=== PATIENT | female | born 1955 | race Caucasian/White ===

== ENCOUNTER 2018-07-15 12:08 | Emergency (ER) | payer OTHER, SELFPAY ==
--- NOTE | 2018-07-15 12:40 | EDPHYS ---
Physician Documentation [facility] Name: Clare Lenz Age: 62 yrs Sex: Female : 1955 Arrival Date: 07/15/2018 Time: 12:11 Bed 20 Private MD: Isaac Grier H ED Physician Maninder Gamez HPI: 07/15 12:40 This 62 yrs old Female presents to ER via Ambulatory with complaints of jr8 Cough, Sore Throat, Congestion. 12:40 The patient or guardian reports cough, that is intermittent, described as mild, with jr8 productive sputum, that is yellow. Onset: The symptoms/episode began/occurred gradually, 2 week(s) ago. Severity of symptoms: At their worst the symptoms were mild, in the emergency department the symptoms are unchanged. Modifying factors: The symptoms are alleviated by nothing, the symptoms are aggravated by nothing. Associated signs and symptoms: Pertinent positives: rhinorrhea, sore throat, ear pain. The patient has not experienced similar symptoms in the past. The patient has not recently seen a physician. 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 - Social history:: Smoking status: Patient uses tobacco products, smokes one pack cigarettes per day. - Ebola Screening: : No symptoms or risks identified at this time. ROS: 12:40 Eyes: Negative for injury, pain, redness, and discharge, Neck: Negative for injury, jr8 pain, and swelling, Cardiovascular: Negative for chest pain, palpitations, and edema, Abdomen/GI: Negative for abdominal pain, nausea, vomiting, diarrhea, and constipation, Back: Negative for injury and pain, MS/Extremity: Negative for injury and deformity, Skin: Negative for injury, rash, and discoloration, Neuro: Negative for headache, weakness, numbness, tingling, and seizure. 12:40 ENT: Positive for ear pain, nasal discharge, rhinorrhea, sinus congestion, sinus pain. 12:40 Respiratory: Positive for cough, with yellow sputum, Negative for dyspnea on exertion, shortness of breath, wheezing. Exam: 12:40 Eyes: Pupils equal round and reactive to light, extra-ocular motions intact. Lids and jr8 lashes normal. Conjunctiva and sclera are non-icteric and not injected. Cornea within normal limits. Periorbital areas with no swelling, redness, or edema. ENT: Nares patent. clear rhinorrhea, no septal abnormalities noted. Tympanic membranes are normal and external auditory canals are clear. Oropharynx with no redness, swelling, or masses, exudates, or evidence of obstruction, uvula midline. Postnasal discharge noted. Mucous membranes moist. Neck: Trachea midline, no thyromegaly or masses palpated, and no cervical lymphadenopathy. Supple, full range of motion without nuchal rigidity, or vertebral point tenderness. No Meningismus. Cardiovascular: Regular rate and rhythm with a normal S1 and S2. No gallops, murmurs, or rubs. Normal PMI, no JVD. No pulse deficits. Respiratory: Lungs have equal breath sounds bilaterally, clear to auscultation and percussion. No rales, rhonchi or wheezes noted. No increased work of breathing, no retractions or nasal flaring. Abdomen/GI: Soft, non-tender, with normal bowel sounds. No distension or tympany. No guarding or rebound. No evidence of tenderness throughout. Back: No spinal tenderness. No costovertebral tenderness. Full range of motion. Skin: Warm, dry with normal turgor. Normal color with no rashes, no lesions, and no evidence of cellulitis. MS/ Extremity: Pulses equal, no cyanosis. Neurovascular intact. Full, normal range of motion. Neuro: Awake and alert, GCS 15, oriented to person, place, time, and situation. Cranial nerves II-XII grossly intact. Motor strength 5/5 in all extremities. Sensory grossly intact. Cerebellar exam normal. Normal gait. Vital Signs: 12:32 BP 141 / 82; Pulse 75; Resp 18 S; Temp 98.5(O); Pulse Ox 97% on R/A; Weight 57.15 kg aa5 (R); Height 5 ft. 1 in. (154.94 cm) (R); Pain 0/10; 12:32 Body Mass Index 23.81 (57.15 kg, 154.94 cm) aa5 MDM: 12:31 Patient medically screened. jr8 12:39 Data reviewed: vital signs, nurses notes, and as a result, I will discharge patient. jr8 Data interpreted: Pulse oximetry: on room air is 97 %. Interpretation: normal. Counseling: I had a detailed discussion with the patient and/or guardian regarding: the historical points, exam findings, and any diagnostic results supporting the discharge/admit diagnosis, the need for outpatient follow up, a family practitioner, to return to the emergency department if symptoms worsen or persist or if there are any questions or concerns that arise at home. ED course: Patient has had continuous symptoms for over 2 weeks now with no OTC relief . Administered Medications: No medications were administered Disposition: 15:33 Co-signature as Attending Physician, Maninder Gamez MD. rn Disposition: 07/15/18 12:40 Discharged to Home. Impression: Acute sinusitis. - Condition is Stable. - Discharge Instructions: Sinusitis, Adult. - Prescriptions for Prednisone 20 mg Oral Tablet - take 1 tablet by ORAL route once daily for 5 days; 5 tablet. Zithromax Z- Rigo 250 mg Oral Tablet - take 1 tablet by ORAL route as directed for 5 days Day 1 - take two (2) tablets one time. Day 2, 3, 4 , 5 take one (1) tablet once daily.; 6 tablet. Guaifenesin AC 10- 100 mg/5 mL Oral Liquid - take 10 milliliter by ORAL route every 4 hours As needed; 240 milliliter. - Medication Reconciliation Form, Thank You Letter, Antibiotic Education, Prescription Opioid Use form. - Follow up: Isaac Grier DO; When: 1 week; Reason: Recheck today's complaints, Continuance of care, Re-evaluation by your physician. - Problem is new. - Symptoms have improved. Signatures: Maninder Gamez MD MD rn Calderon, Audri, RN RN aa5 Kyler Garcia PA PA jr8 Corrections: (The following items were deleted from the chart) 12:47 12:40 07/15/2018 12:40 Discharged to Home. Impression: Acute sinusitis. Condition is aa5 Stable. Forms are Medication Reconciliation Form, Thank You Letter, Antibiotic Education, Prescription Opioid Use. Follow up: Isaac Grier; When: 1 week; Reason: Recheck today's complaints, Continuance of care, Re-evaluation by your physician. Problem is new. Symptoms have improved. jr8
--- NOTE | 2018-07-15 12:40 | ER ---
Nurse's Notes [facility] Name: Clare Lenz Age: 62 yrs Sex: Female : 1955 Arrival Date: 07/15/2018 Time: 12:11 Bed 20 Private MD: Isaac Grier H Diagnosis: Acute sinusitis Presentation: 07/15 12:30 Presenting complaint: Patient states: manda ear pain, sore throat, congestion, and aa5 productive cough with greenish sputum x 2 weeks ago. 12:30 Transition of care: patient was not received from another setting of care. Onset of aa5 symptoms was July 2018. Risk Assessment: Do you want to hurt yourself or someone else? Patient reports no desire to harm self or others. Initial Sepsis Screen: Does the patient meet any 2 criteria? No. Patient's initial sepsis screen is negative. Does the patient have a suspected source of infection? No. Patient's initial sepsis screen is negative. Care prior to arrival: None. 12:30 Method Of Arrival: Ambulatory aa5 12:30 Acuity: RAHUL 3 aa5 Triage Assessment: 12:30 General: Appears uncomfortable, Behavior is calm, cooperative. 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 - Social history:: Smoking status: Patient uses tobacco products, smokes one pack cigarettes per day. - Ebola Screening: : No symptoms or risks identified at this time. Screenin:45 Abuse screen: Denies threats or abuse. Nutritional screening: No deficits noted. aa5 Tuberculosis screening: No symptoms or risk factors identified. Fall Risk None identified. Assessment: 12:30 General: Appears uncomfortable, Behavior is calm, cooperative. Pain: Denies pain. aa5 Neuro: Level of Consciousness is awake, alert, obeys commands, Oriented to person, place, time, situation. Cardiovascular: Heart tones S1 S2 present Rhythm is regular. Respiratory: Reports cough that is productive, Airway is patent Respiratory effort is even, unlabored, Respiratory pattern is regular, symmetrical, Breath sounds are clear bilaterally. GI: No signs and/or symptoms were reported involving the gastrointestinal system. : No signs and/or symptoms were reported regarding the genitourinary system. EENT: Throat is clear Reports nasal congestion manda ear pain/pressure. Derm: Skin is pink, warm \T\ dry. Musculoskeletal: Range of motion: intact in all extremities. 12:45 Reassessment: Patient is alert, oriented x 3, equal unlabored respirations, skin aa5 warm/dry/pink. Vital Signs: 12:32 BP 141 / 82; Pulse 75; Resp 18 S; Temp 98.5(O); Pulse Ox 97% on R/A; Weight 57.15 kg aa5 (R); Height 5 ft. 1 in. (154.94 cm) (R); Pain 0/10; 12:32 Body Mass Index 23.81 (57.15 kg, 154.94 cm) aa5 ED Course: 12:11 Patient arrived in ED. rg4 12:11 Isaac Grier DO is Private Physician. rg4 12:30 Arm band placed on Patient placed in an exam room, on a stretcher. aa5 12:30 Patient has correct armband on for positive identification. Bed in low position. Call aa5 light in reach. Side rails up X 1. Adult w/ patient. 12:31 Kyler Garcia PA is PHCP. jr8 12:31 Maninder Gamez MD is Attending Physician. jr8 12:34 Triage completed. aa5 12:40 Isaac Grier DO is Referral Physician. jr8 12:40 Mojgan Easley RN is Primary Nurse. aa5 12:45 No provider procedures requiring assistance completed. Patient did not have IV access aa5 during this emergency room visit. Administered Medications: No medications were administered Outcome: 12:40 Discharge ordered by . jr8 12:45 Discharged to home ambulatory, with family. aa5 12:45 Condition: stable 12:45 Discharge instructions given to patient, Instructed on discharge instructions, follow up and referral plans. medication usage, Demonstrated understanding of instructions, follow-up care, medications, Prescriptions given X 3. 12:47 Patient left the ED. aa5 Signatures: Mojgan Easley RN RN aa5 Kyler Garcia PA PA jr8 Lena May rg4
[2018-07-15 13:14] VITALS: BP 141/82; TEMP 98.5; O2SAT 97
== END 2018-07-15 12:47 | disposition home or self-care (01) ==
LOC: ER 12:08
DX: J01.90 Acute sinusitis, unspecified (principal); F17.210 Nicotine dependence, cigarettes, uncomplicated; Z88.1 Allergy status to other antibiotic agents
CPT/HCPCS: 99282

== ENCOUNTER 2018-09-18 11:41 | Emergency (ER) | payer SELFPAY ==
[2018-09-18] MEDS ORDERED: KETOROLAC 30 MG/ML INJ ONE (12:49)
--- NOTE | 2018-09-18 12:55 | ER ---
Nurse's Notes [facility] Name: Clare Lenz Age: 62 yrs Sex: Female : 1955 Arrival Date: 09/18/2018 Time: 11:43 Bed 10 Private MD: Isaac Grier H Diagnosis: Low back pain Presentation: 09/18 11:51 Presenting complaint: Patient states: left low back pain x 1 day, denies urinary sv symptoms or injury. "Feels like it's going to catch sometimes.". Transition of care: patient was not received from another setting of care. Onset of symptoms was September 17, 2018. Care prior to arrival: None. 11:51 Method Of Arrival: Wheelchair sv 11:51 Acuity: RAHUL 4 sv 12:00 Risk Assessment: Do you want to hurt yourself or someone else? Patient reports no aa5 desire to harm self or others. Initial Sepsis Screen: Does the patient meet any 2 criteria? No. Patient's initial sepsis screen is negative. Does the patient have a suspected source of infection? No. Patient's initial sepsis screen is negative. Triage Assessment: 11:51 General: Appears in no apparent distress. uncomfortable, well developed, Behavior is sv calm, cooperative, appropriate for age. Pain: Complains of pain in low back area. Neuro: Level of Consciousness is awake, alert, obeys commands, Oriented to person, place, time, situation, Moves all extremities. Full function Gait is steady. Respiratory: Respiratory effort is even, unlabored, Respiratory pattern is regular, symmetrical. : Denies burning with urination, urinary frequency, urgency. Musculoskeletal: Range of motion: intact in all extremities. 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 Screenin:00 Abuse screen: Denies threats or abuse. Nutritional screening: No deficits noted. aa5 Tuberculosis screening: No symptoms or risk factors identified. Fall Risk None identified. Assessment: 12:00 General: Appears uncomfortable, Behavior is calm, cooperative. Pain: Complains of pain aa5 in lumbar area, left low back and right low back Pain does not radiate. Pain currently is 10 out of 10 on a pain scale. Quality of pain is described as sharp, Pain began 1 day ago. Is continuous, Aggravated by increased activity, repositioning, Noted to be resistant to movement. Neuro: Level of Consciousness is awake, alert, obeys commands, Oriented to person, place, time, situation. Cardiovascular: No deficits noted. Patient's skin is warm and dry. Respiratory: Airway is patent Respiratory effort is even, unlabored, Respiratory pattern is regular, symmetrical. GI: No signs and/or symptoms were reported involving the gastrointestinal system. : No signs and/or symptoms were reported regarding the genitourinary system. EENT: No signs and/or symptoms were reported regarding the EENT system. Derm: Skin is pink, warm \\T\\ dry. Musculoskeletal: Range of motion: intact in all extremities. 12:54 Reassessment: Patient is alert, oriented x 3, equal unlabored respirations, skin aa5 warm/dry/pink. 12:54 Pain: Pain currently is 10 out of 10 on a pain scale. aa5 13:13 Reassessment: Patient is alert, oriented x 3, equal unlabored respirations, skin aa5 warm/dry/pink. Patient states feeling better. Pain: Pain currently is 8 out of 10 on a pain scale. Vital Signs: 11:53 BP 114 / 67; Pulse 76; Resp 20; Temp 97.1(TE); Pulse Ox 99% on R/A; Weight 56.25 kg; sv Height 5 ft. 1 in. (154.94 cm); Pain 10/10; 11:53 Body Mass Index 23.43 (56.25 kg, 154.94 cm) sv ED Course: 11:43 Patient arrived in ED. mr 11:44 Isaac Grier DO is Private Physician. mr 11:52 Triage completed. sv 11:54 Arm band placed on Patient placed in waiting room, Patient notified of wait time. sv 11:55 Bean Santana PA is PHCP. cp 11:55 Bean Marcelino MD is Attending Physician. cp 12:00 Patient has correct armband on for positive identification. Bed in low position. Call aa5 light in reach. Side rails up X 1. 12:03 Mojgan Easley, LEIF is Primary Nurse. aa5 12:54 Isaac Grier DO is Referral Physician. cp 13:15 No provider procedures requiring assistance completed. Patient did not have IV access aa5 during this emergency room visit. Administered Medications: 12:54 Drug: TORadol 60 mg Route: IM; Site: left gluteus; aa5 13:15 Follow up: Response: No adverse reaction aa5 Outcome: 12:55 Discharge ordered by MD. cp 13:13 Discharged to home ambulatory, with friend. aa5 13:13 Condition: improved 13:13 Discharge instructions given to patient, Instructed on discharge instructions, follow up and referral plans. medication usage, Demonstrated understanding of instructions, follow-up care, medications, Prescriptions given X 3. 13:15 Patient left the ED. aa5 Signatures: Carla Ferguson RN RN Alisia Palacio Audri RN RN aa5 Bean Santana PA PA cp Corrections: (The following items were deleted from the chart) 11:54 11:53 Pulse 76bpm; Resp 20bpm; Pulse Ox 99%; Temp 97.1F; 56.25 kg; Height 5 ft. 1 in.; sv BMI: 23.4; Pain 10/10; sv
--- NOTE | 2018-09-18 12:55 | EDPHYS ---
Physician Documentation [facility] Name: Clare Lenz Age: 62 yrs Sex: Female : 1955 Arrival Date: 09/18/2018 Time: 11:43 Bed 10 Private MD: Isaac Grier H ED Physician Bean Marcelino HPI: 09/18 12:25 This 62 yrs old Female presents to ER via Wheelchair with complaints of Back cp Pain. 12:25 The patient presents with pain that is acute, with no known mechanism of injury. The cp symptoms are located in the low back. 09/19 05:35 Onset: The symptoms/episode began/occurred 2 day(s) ago. The pain does not radiate. cp Associated signs and symptoms: Pertinent negatives: abdominal pain, chest pain, constipation, fever, incontinence, weakness. 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 ROS: 12:33 Constitutional: Negative for body aches, chills, fever, poor PO intake. cp 12:33 Eyes: Negative for injury, pain, redness, and discharge. cp Exam: 12:40 Constitutional: The patient appears in no acute distress, alert, awake, cp non-diaphoretic, non-toxic, well developed, well nourished, uncomfortable. 12:40 Head/Face: Normocephalic, atraumatic. cp 12:40 Eyes: Periorbital structures: appear normal, Conjunctiva: normal, no exudate, no injection, Sclera: no appreciated abnormality, Lids and lashes: appear normal, bilaterally. 12:40 ENT: External ear(s): are unremarkable, Nose: is normal, Mouth: Lips: moist, Oral mucosa: pink and intact, moist, Posterior pharynx: Airway: no evidence of obstruction, patent. 12:40 Neck: ROM/movement: is normal, is supple, without pain, no meningismus, no nuchal rigidity. 12:40 Chest/axilla: Inspection: normal, Palpation: is normal, no crepitus, no tenderness. 12:40 Cardiovascular: Rate: normal, Rhythm: regular, Edema: is not appreciated, JVD: is not appreciated. 12:40 Respiratory: the patient does not display signs of respiratory distress, Respirations: normal, no use of accessory muscles, no retractions, no splinting, no tachypnea, Breath sounds: are clear throughout, no decreased breath sounds. 12:40 Abdomen/GI: Inspection: abdomen appears normal, Bowel sounds: active, all quadrants. 12:40 Back: pain, that is moderate, of the low back area, ROM is painful, with all movement. 12:40 Skin: cellulitis, is not appreciated, no rash present. 12:40 Neuro: Orientation: to person, place \T\ time. Mentation: is normal, Cerebellar function: is grossly normal, Motor: moves all fours, strength is normal, Sensation: no obvious gross deficits. Vital Signs: 11:53 BP 114 / 67; Pulse 76; Resp 20; Temp 97.1(TE); Pulse Ox 99% on R/A; Weight 56.25 kg; sv Height 5 ft. 1 in. (154.94 cm); Pain 10/10; 11:53 Body Mass Index 23.43 (56.25 kg, 154.94 cm) sv MDM: 11:55 Patient medically screened. cp 12:20 Differential diagnosis: chronic back pain, Metastatic Disease ruptured disc, cp Ureterolithiasis vertebral fracture. 12:55 Data reviewed: vital signs, nurses notes, lab test result(s), radiologic studies. cp 09/18 12:59 Order name: Urine Dipstick--Ancillary (enter results) eb 09/18 12:21 Order name: Urine Dipstick-Ancillary (obtain specimen); Complete Time: 12:54 cp Administered Medications: 12:54 Drug: TORadol 60 mg Route: IM; Site: left gluteus; aa5 13:15 Follow up: Response: No adverse reaction aa5 Disposition: 09/18/18 12:55 Discharged to Home. Impression: Low back pain. - Condition is Stable. - Discharge Instructions: Back Pain, Adult, Back Exercises, [id number], Heat Therapy. - Prescriptions for Cyclobenzaprine 10 mg Oral Tablet - take 1 tablet by ORAL route every 8 hours As needed no driving while taking medication; 20 tablet. Tramadol 50 mg Oral Tablet - take 1 tablet by ORAL route every 8 hours as needed. no driving while taking medication; 15 tablet. Medrol (Rigo) 4 mg Oral Tablets, Dose Pack - take 1 tablet by ORAL route as directed - follow package instructions; 1 packet. - Medication Reconciliation Form, Thank You Letter, Antibiotic Education, Prescription Opioid Use form. - Follow up: Lilliam GrierMayiDO Lazaro; When: 2 - 3 days; Reason: Recheck today's complaints. - Problem is new. - Symptoms have improved. Addendum: 09/21/2018 07:08 Co-signature as Attending Physician, Bean Marcelino MD I agree with the assessment and c minaya plan of care. Signatures: Dispatcher [employer] Carla Rodriguez RN RN Bean Lezama MD MD cha Calderon, Audri RN RN aa5 Bean Santana PA PA cp Corrections: (The following items were deleted from the chart) 09/18 13:15 12:55 09/18/2018 12:55 Discharged to Home. Impression: Low back pain. Condition is aa5 Stable. Forms are Medication Reconciliation Form, Thank You Letter, Antibiotic Education, Prescription Opioid Use. Follow up: Isaac Grier; When: 2 - 3 days; Reason: Recheck today's complaints. Problem is new. Symptoms have improved. cp
[2018-09-18 13:20] VITALS: BP 114/67; TEMP 97.1; O2SAT 99
[2018-09-18 13:31] LABS: Urine Blood TRACE (NEG); Urine Glucose NEGATIVE (NEG); Urine Protein NEGATIVE (NEG)
== END 2018-09-18 13:15 | disposition home or self-care (01) ==
LOC: ER 11:41
DX: M54.5 Low back pain (principal); Z88.1 Allergy status to other antibiotic agents
CPT/HCPCS: 81003; 96372; 99283

== ENCOUNTER 2021-12-18 11:42 | Emergency (ER) | payer OTHER ==
--- OUTSIDE RECORDS SUMMARY | 2021-12-18 11:45 | XMS REPORT | Continuity of Care Document ---
:1955 Author Organization [facility] t Address [address] [place] [address] [address] [place] [address] Care Team Providers Name Role Phone MURILLO, MANUEL Attending Clinician Unavailable Nakul Attending Clinician Unavailable NIKOLAI GALVIN Attending Clinician Unavailable RAGHU BLANCAS Attending Clinician Unavailable ANGELIA_Yelitza_Maira Attending Clinician Unavailable Elle_Jose M Attending Clinician Unavailable Nakul Admitting Clinician Unavailable NIKOLAI GALVIN Admitting Clinician Unavailable ANGELIA_Yelitza_Maira Admitting Clinician Unavailable Elle_Jose M Admitting Clinician Unavailable Payers Payer Name Policy Type Policy Number Effective Date Expiration Date S micaela [facility] [employer] [id number] 2021 00:00:00 [facility] - MEDICARE [id number] COMPLETE (MEDICARE REPLACEMENT HMO) Problems This patient has no known problems. Allergies, Adverse Reactions, Alerts This patient has no known allergies or adverse reactions. Medications This patient has no known medications. Procedures This patient has no known procedures. Encounters Start End Encounter Admission Attending Care Care Encounter Source Date/Time Date/Time Type Type Clinicians Facility Department ID 2021-12-14 Outpatient [facility] [id number] [place] 10:10:[address] [id number] 2021-12-15 2021-12-15 Outpatient AUGUST_Andres AOSM AOSM [id number] Elli 01:26:00 01:26:00 Allison [id number] [facility] 2021-11-28 2021-11-30 Inpatient KAMAR, SW [facility] [id number] [facility] 19:46:00 14:00:00 HELGA 2021-11-28 2021-11-28 Emergency E MAGALIS, BL [facility]BL [id number] [facility]BL 13:05:00 19:00:00 MENDY 2021-11-28 2021-11-28 Outpatient GC_TNC_Cher PRIV PRIV [id number] [facility] 05:59:00 05:59:00 ches_I [id number] Medica l 2019-10-04 2019-10-04 Outpatient Raju_P [facility] [id number] [place] 03:06:00 03:06:00 [id number] [facility] Results This patient has no known results.
--- NOTE | 2021-12-18 12:36 | EDPHYS ---
Physician Documentation [facility] Name: Clare Lenz Age: 66 yrs Sex: Female : 1955 Arrival Date: 12/18/2021 Time: 12:06 Bed 19 Private MD: ED Physician Maninder Gamez HPI: 12/18 12:30 This 66 yrs old Female presents to ER via Ambulatory with complaints of Rash, Itching. cp 12:30 The patient's rash thought to be caused by medication. The rash is located on the right cp arm, left arm, right leg and left leg. The rash can be described as urticarial. 12:32 Onset: The symptoms/episode began/occurred 5 day(s) ago. Associated signs and symptoms: cp Pertinent positives: burning sensation, itching, Pertinent negatives: difficulty breathing, fever, swelling of lips, swelling of throat, swelling of tongue, wheezing. 12:32 Started new medications: Atorvastatin and Clopidogrel on 11-30-2021. cp Historical: - Allergies: 12:26 Cipro; ap3 - PMHx: 12:26 Herniated disc; TIA; ap3 - Immunization history:: Client reports having NOT received the Covid vaccine. - Social history:: Smoking status: Patient reports the use of cigarette tobacco products, smokes one-half pack cigarettes per day. ROS: 12:33 Constitutional: Negative for body aches, chills, fever, poor PO intake. cp 12:33 Eyes: Negative for injury, pain, redness, and discharge. cp 12:33 ENT: Negative for drainage from ear(s), ear pain, sore throat, difficulty swallowing, difficulty handling secretions. 12:33 Cardiovascular: Negative for chest pain, edema, palpitations. 12:33 Respiratory: Negative for cough, shortness of breath, wheezing. 12:33 Abdomen/GI: Negative for abdominal pain, nausea, vomiting, and diarrhea. 12:33 Skin: Positive for abrasion(s), rash, pruritus . 12:33 Neuro: Negative for altered mental status. 12:33 All other systems are negative. Exam: 12:35 Constitutional: The patient appears in no acute distress, alert, awake, non-toxic, well cp developed, well nourished. 12:35 Head/Face: Normocephalic, atraumatic. cp 12:35 Chest/axilla: Inspection: normal. 12:35 Cardiovascular: Rate: normal, Rhythm: regular. 12:35 Respiratory: the patient does not display signs of respiratory distress, Respirations: normal, no use of accessory muscles, no retractions, labored breathing, is not present, Breath sounds: are clear throughout, no decreased breath sounds, no stridor, no wheezing. 12:35 Abdomen/GI: Exam negative for discomfort, distension, guarding, Inspection: abdomen appears normal. 12:35 Skin: rash can be described as urticarial, on the right arm and left arm. 12:35 Neuro: Orientation: to person, place \T\ time. Mentation: is normal. Vital Signs: 12:24 BP 137 / 98; Pulse 80; Temp 98.0; Pulse Ox 98% ; Weight 56.7 kg; Height 5 ft. 1 in. ap3 (154.94 cm); 12:24 Body Mass Index 23.62 (56.70 kg, 154.94 cm) ap3 MDM: 12:36 Patient medically screened. cp 12:36 Differential diagnosis: allergic reaction, medication reaction, scabies. cp 12:36 Data reviewed: vital signs, nurses notes, and as a result, I will discharge patient. cp Counseling: I had a detailed discussion with the patient and/or guardian regarding: the historical points, exam findings, and any diagnostic results supporting the discharge/admit diagnosis, the need for outpatient follow up, a family practitioner, to return to the emergency department if symptoms worsen or persist or if there are any questions or concerns that arise at home. Response to treatment: the patient's symptoms have mildly improved after treatment. Administered Medications: 13:15 Drug: SOLU-Medrol (methylPREDNISolone sodium succinate) 80 mg {Note: 40 mg in left vg1 deltoid and 40 mg in right deltoid.} Route: IM; Site: right gluteus; 13:27 Follow up: Response: Medication administered at discharge. vg1 Disposition Summary: 12/18/21 12:36 Discharge Ordered Location: Home cp Problem: an ongoing problem cp Symptoms: are unchanged cp Condition: Stable cp Diagnosis - Urticaria, unspecified cp Followup: cp - With: Private Physician - When: 2 - 3 days - Reason: Recheck today's complaints Discharge Instructions: - Discharge Summary Sheet cp - Drug Allergy cp Forms: - Medication Reconciliation Form cp - Thank You Letter cp - Antibiotic Education cp - Prescription Opioid Use cp Prescriptions: - Vistaril 25 mg Oral capsule - take 2 capsule by ORAL route 4 times per day may take 1-2 capsules every 6 cp hours as needed for itching; 30 capsule; Refills: 0, Product Selection Permitted - Pepcid 20 mg Oral Tablet - take 1 tablet by ORAL route every 12 hours for 10 days; 20 tablet; Refills: 0, cp Product Selection Permitted Signatures: Bean Santana PA PA cp Prokisch, Amanda RN RN ap3 Darya May RN RN vg1
--- NOTE | 2021-12-18 12:36 | ER ---
Nurse's Notes [facility] Name: Clare Lenz Age: 66 yrs Sex: Female : 1955 Arrival Date: 12/18/2021 Time: 12:06 Bed 19 Private MD: Diagnosis: Urticaria, unspecified Presentation: 12/18 12:24 Chief complaint: Patient states: she has been having a burning and tingling feeling in ap3 her arms and legs. Patient reports this started a few days ago and was evaluated at [facility] for the same symptoms. Patient states her symptoms have not improved. Coronavirus screen: At this time, the client does not indicate any symptoms associated with coronavirus-19. Ebola Screen: No symptoms or risks identified at this time. Onset: The symptoms/episode began/occurred gradually, 5 day(s) ago. Anaphylaxis evaluation, no signs or symptoms of anaphylaxis were noted. Initial Sepsis Screen: Does the patient meet any 2 criteria? No. Patient's initial sepsis screen is negative. Does the patient have a suspected source of infection? No. Patient's initial sepsis screen is negative. Risk Assessment: Do you want to hurt yourself or someone else? Patient reports no desire to harm self or others. Onset of symptoms was December 13, 2021. 12:24 Method Of Arrival: Ambulatory ap3 12:24 Acuity: RAHUL 4 ap3 Triage Assessment: 12:30 General: Appears in no apparent distress. Behavior is calm, cooperative, appropriate ap3 for age. Pain: Denies pain. Neuro: Level of Consciousness is awake, alert, obeys commands, Oriented to person, place, time, situation, Appropriate for age Gait is steady. Cardiovascular: Patient's skin is warm and dry. Respiratory: Airway is patent Respiratory effort is even, unlabored, Respiratory pattern is regular, symmetrical. Derm: Reports itching, tingling. Historical: - Allergies: 12:26 Cipro; ap3 - PMHx: 12:26 Herniated disc; TIA; ap3 - Immunization history:: Client reports having NOT received the Covid vaccine. - Social history:: Smoking status: Patient reports the use of cigarette tobacco products, smokes one-half pack cigarettes per day. Screenin:30 Abuse screen: Denies threats or abuse. Nutritional screening: No deficits noted. ap3 Tuberculosis screening: No symptoms or risk factors identified. Fall Risk None identified. Assessment: 13:10 General: Appears comfortable, Behavior is calm, cooperative. Pain: Denies pain. Neuro: vg1 Sommers Agitation-Sedation Scale (RASS): 0 - Alert and Calm Level of Consciousness is awake, alert, obeys commands, Oriented to person, place, time, situation. Cardiovascular: Patient's skin is warm and dry. Respiratory: Airway is patent Respiratory effort is even, unlabored, Breath sounds are clear Denies shortness of breath. GI: No signs and/or symptoms were reported involving the gastrointestinal system. : No signs and/or symptoms were reported regarding the genitourinary system. EENT: No signs and/or symptoms were reported regarding the EENT system. Derm: Skin is intact, is healthy with good turgor, Rash noted that is itchy. Musculoskeletal: Circulation, motion, and sensation intact. Vital Signs: 12:24 BP 137 / 98; Pulse 80; Temp 98.0; Pulse Ox 98% ; Weight 56.7 kg; Height 5 ft. 1 in. ap3 (154.94 cm); 12:24 Body Mass Index 23.62 (56.70 kg, 154.94 cm) ap3 ED Course: 12:06 Patient arrived in ED. rg4 12:09 Bean Santana PA is PHCP. cp 12:09 Maninder Gamez MD is Attending Physician. cp 12:26 Triage completed. ap3 12:31 Arm band placed on right wrist. ap3 12:31 Patient has correct armband on for positive identification. Pulse ox on. NIBP on. ap3 13:09 Darya May, RN is Primary Nurse. vg1 13:30 No provider procedures requiring assistance completed. Patient did not have IV access vg1 during this emergency room visit. Administered Medications: 13:15 Drug: SOLU-Medrol (methylPREDNISolone sodium succinate) 80 mg {Note: 40 mg in left vg1 deltoid and 40 mg in right deltoid.} Route: IM; Site: right gluteus; 13:27 Follow up: Response: Medication administered at discharge. vg1 Medication: 13:10 VIS not applicable for this client. vg1 Outcome: 12:36 Discharge ordered by . cp 13:30 Discharged to home ambulatory. vg1 13:30 Condition: good 13:30 Discharge instructions given to patient, Instructed on discharge instructions, follow up and referral plans. medication usage, Demonstrated understanding of instructions, follow-up care, medications, Prescriptions given X 2. 13:30 Patient left the ED. vg1 Signatures: Bean Santana PA PA cp Garcia, Rubi rg4 Kamala Vu, RN RN ap3 Darya May RN RN vg1 Corrections: (The following items were deleted from the chart) 13 13:10 No provider procedures requiring assistance completed. vg1 vg1 13 13:10 Patient did not have IV access during this emergency room visit. vg1 vg1
[2021-12-18] MEDS ORDERED: METHYLPREDNISOLONE 40 MG INJ ONE (13:23)
[2021-12-18 13:46] VITALS: BP 137/98; TEMP 98; O2SAT 98
== END 2021-12-18 13:30 | disposition home or self-care (01) ==
LOC: ER 11:42
DX: L50.9 Urticaria, unspecified (principal); F17.210 Nicotine dependence, cigarettes, uncomplicated; Z88.1 Allergy status to other antibiotic agents
CPT/HCPCS: 96372; 99283; J2920

== ENCOUNTER → 2021-12-24 | Day surgery (SDC) | payer OTHER ==
--- NOTE | 2021-12-24 11:58 | RAD REPORT ---
EXAM DESCRIPTION: US - Guided FNA Non Breast - 12/24/2021 11:32 am CLINICAL HISTORY: E04.1 COMPARISON: Thyroid Para Parotid Gland dated 11/15/2021 TECHNIQUE: Patient presents for ultrasound-guided fine-needle aspiration of previously detailed 3.5 cm heterogeneous solid nodule in the right lobe of the thyroid gland. The procedure, risks and alternatives were discussed with the patient in detail. After answering all questions both oral and written consent were obtained. Patient had no contraindicated allergy and was lost anticoagulation medication for 7 days. Preliminary imaging again identified a large solid nodule. Anterior right neck was prepped and draped in the usual sterile fashion. Under sonographic guidance, skin and deeper tissues were anesthetized with 1% lidocaine. Under sonographic visualization a 25 gauge needle was advanced into the nodule. Multiple to and fro e xcursions of the needle tip performed. FNA procedure was repeated with 3 additional 25 gauge needles. All obtained material was given to pathology for cytology/ histology assessment. At the conclusion of the procedure there was no evidence for hematoma within or adjacent to the nodul e. No procedure related complications noted. Postprocedure care and precaution instructions were give n to the patient. FINDINGS: Ultrasound-guided FNA was performed of the large solid nodule right lobe. Patient tolerated procedure well without complications.
== END ==
LOC: FNA 10:06
PROVIDERS: ATTEND Family Medicine
PROC: 0GJK3ZZ Inspection of Thyroid Gland, Percutaneous Approach (ICD-10-PCS; principal; 2021-12-24)
DX: E04.1 Nontoxic single thyroid nodule (principal)
CPT/HCPCS: 88162

== ENCOUNTER 2022-02-09 17:35 | Emergency (ER) | payer OTHER ==
--- OUTSIDE RECORDS SUMMARY | 2022-02-09 17:38 | XMS REPORT | Continuity of Care Document ---
:1955 Author Organization [facility] t Address [address] [place] [address] [address]. [address] [place] [address] Care Team Providers Name Role Phone Lilliam Grier Primary Care Physician MATTHEW MURILLO Attending Clinician Unavailable RESHMA SINGLETON Attending Clinician Unavailable Stoney Johnson Attending Clinician Unavailable Nakul Attending Clinician Unavailable HELGA GALVIN Attending Clinician Unavailable MENDY BLANCAS Attending Clinician Unavailable [email or web address] Attending Clinician Unavailable Raju_P Attending Clinician Unavailable Nakul Admitting Clinician Unavailable HELGA GALVIN Admitting Clinician Unavailable [email or web address] Admitting Clinician Unavailable Robbinu_P Admitting Clinician Unavailable Payers Payer Name Policy Type Policy Number Effective Date Expiration Date Naveed hinojosa [facility] [employer] [id number] 2021 00:00:[address] [facility] - MEDICARE [id number] COMPLETE (MEDICARE REPLACEMENT HMO) Problems This patient has no known problems. Allergies, Adverse Reactions, Alerts Allergy Allergy Status Severity Reaction(s) Onset Inactive Treating Comm ents Source Name Type Date Date Clinician sabine DA Active U Rash [facility] benson 12-27 00:00: 00 Social History Social Habit Start Date Stop Date Quantity Comments Source Sex Assigned At [birth year] [facility] 00:00:00 00:00:00 Smoking Status Start Date Stop Date Source Tobacco smoking consumption unknown [facility] Medications This patient has no known medications. Procedures This patient has no known procedures. Encounters Start End Encounter Admission Attending Care Care Encounter Source Date/Time Date/Time Type Type Clinicians Facility Department ID 2022-01-23 Outpatient MURILLO, [facility] [id number] [place] 12:31:25 GENE-ELKIN [id number] [facility] 2021-12-14 Outpatient MURILLO, [facility] [id number] [place] 10:10:38 GENE-ELKIN [id number] [facility] 2022-02-07 2022-02-07 Telephone Divya [facility] [id number] [place] 00:00:00 [id number] [id number] Medical [id number] [place] 1 2 2022-01-31 2022-02-01 Outpatient ARELI [facility] MED [id number] [facility] 16:49:00 11:39:00 RESHMA 2021-12-28 2021-12-28 Outpatient Elective Elizabeth, [facility] [id number] [facility] 05:42:00 12:30:00 Stoney 45 2021-12-28 2021-12-[address] [facility] [id number] [facility] 05:42:00 05:42:00 45 2021-12-15 2021-12-15 Outpatient FOG_Taba_Ho AOSM AOSM [id number] Elli 01:26:00 01:26:00 Allison [id number] [facility] 2021-12-14 2021-12-14 Telephone Divay [facility] [id number] [place] 00:00:00 00:00:00 [facility] [id number] [facility] [id number] Medical [id number] [place] 1 2 2021-11-28 2021-11-30 Inpatient KAMAR, SW [facility] [id number] MHSW 19:46:00 14:00:00 HELGA 2021-11-28 2021-11-28 Emergency E MAGALIS, MHBL MHBL [id number] MHBL 13:05:00 19:00:00 MENDY 2021-11-28 2021-11-28 Outpatient GC_TNC_Cher PRIV PRIV [id number] [facility] 05:59:00 05:59:00 ches_I [id number] Medica l 2019-10-04 2019-10-04 Outpatient Raju_P MMG [facility] [id number] [place] 03:06:00 03:06:00 0330 [facility] Results This patient has no known results.
--- NOTE | 2022-02-09 18:43 | EDPHYS ---
Physician Documentation [facility] Name: Clare Lenz Age: 66 yrs Sex: Female : 1955 Arrival Date: 02/09/2022 Time: 17:37 Bed 11 Private MD: Isaac Grier H ED Physician Jomar Ramsey HPI: 02/09 18:26 This 66 yrs old Female presents to ER via Ambulatory with complaints of arm/leg mh7 tremors, Blurred Vision, Headache. 18:26 The patient complains of pain to the forehead. mh7 18:26 The patient describes the headache as intermittent, throbbing, waxing and waning. mh7 Onset: The symptoms/episode began/occurred 3 month(s) ago. Associated signs and symptoms: Pertinent negatives: Photophobia blurred vision, tremors of left arm/leg. Severity of symptoms: At its worst the pain was moderate, 14 day(s) ago, in the emergency department the pain has resolved, 4 day(s) prior to arrival. Headache History: The patient has had previous headaches and this one is similar to previous episodes. The symptoms are alleviated by quiet, remaining still, the symptoms are aggravated by movement, activity. The patient has experienced similar episodes in the past, chronically. Patient states that she has had daily episodes of headache, blurred vision, left arm/leg tremors since she had a stroke 3 months ago. She states that symptoms seem to occur when she is doing activities and go away when she sits and rests. Denies any fever, chest pain, neck pain, abdominal pain, SOB, dizziness, numbness/tingling, or weakness. . Historical: - Allergies: 17:49 Cipro; ap3 - PMHx: 17:49 Herniated disc; TIA; ap3 - PSHx: 17:49 stent placed in right leg; ap3 - Immunization history:: Client reports having NOT received the Covid vaccine. - Social history:: Smoking status: Patient reports the use of cigarette tobacco products, smokes one-half pack cigarettes per day. ROS: 18:26 Constitutional: Negative for fever, chills, and weight loss, ENT: Negative for injury, mh7 pain, and discharge, Neck: Negative for injury, pain, and swelling, Cardiovascular: Negative for chest pain, palpitations, and edema, Respiratory: Negative for shortness of breath, cough, wheezing, and pleuritic chest pain, Abdomen/GI: Negative for abdominal pain, nausea, vomiting, diarrhea, and constipation, Back: Negative for injury and pain, : Negative for injury, bleeding, discharge, and swelling, MS/Extremity: Negative for injury and deformity, Skin: Negative for injury, rash, and discoloration, Psych: Negative for depression, anxiety, suicide ideation, homicidal ideation, and hallucinations, Allergy/Immunology: Negative for hives, rash, and allergies, Endocrine: Negative for neck swelling, polydipsia, polyuria, polyphagia, and marked weight changes, Hematologic/Lymphatic: Negative for swollen nodes, abnormal bleeding, and unusual bruising. Exam: 18:26 Constitutional: This is a well developed, well nourished patient who is awake, alert, mh7 and in no acute distress. Head/Face: Normocephalic, atraumatic. Eyes: Pupils equal round and reactive to light, extra-ocular motions intact. Lids and lashes normal. Conjunctiva and sclera are non-icteric and not injected. Cornea within normal limits. Periorbital areas with no swelling, redness, or edema. ENT: Nares patent. No nasal discharge, no septal abnormalities noted. Tympanic membranes are normal and external auditory canals are clear. Oropharynx with no redness, swelling, or masses, exudates, or evidence of obstruction, uvula midline. Mucous membranes moist. Neck: Trachea midline, no thyromegaly or masses palpated, and no cervical lymphadenopathy. Supple, full range of motion without nuchal rigidity, or vertebral point tenderness. No Meningismus. Chest/axilla: Normal chest wall appearance and motion. Nontender with no deformity. No lesions are appreciated. Cardiovascular: Regular rate and rhythm with a normal S1 and S2. No gallops, murmurs, or rubs. Normal PMI, no JVD. No pulse deficits. Respiratory: Lungs have equal breath sounds bilaterally, clear to auscultation and percussion. No rales, rhonchi or wheezes noted. No increased work of breathing, no retractions or nasal flaring. Abdomen/GI: Soft, non-tender, with normal bowel sounds. No distension or tympany. No guarding or rebound. No evidence of tenderness throughout. Back: No spinal tenderness. No costovertebral tenderness. Full range of motion. Skin: Warm, dry with normal turgor. Normal color with no rashes, no lesions, and no evidence of cellulitis. MS/ Extremity: Pulses equal, no cyanosis. Neurovascular intact. Full, normal range of motion. Neuro: Awake and alert, GCS 15, oriented to person, place, time, and situation. Cranial nerves II-XII grossly intact. Motor strength 5/5 in all extremities. Sensory grossly intact. Cerebellar exam normal. Normal gait. Psych: Awake, alert, with orientation to person, place and time. Behavior, mood, and affect are within normal limits. 18:35 Eyes: Patient declined fluorescein and tonometry exam. [facility] Vital Signs: 17:46 BP 154 / 58; Pulse 86; Resp 18; Temp 98.7; Pulse Ox 99% ; Weight 54.88 kg; Height 5 ft. ap3 2 in. (157.48 cm); 17:46 Body Mass Index 22.13 (54.88 kg, 157.48 cm) ap3 [place] Coma Score: 18:26 Eye Response: spontaneous(4). Verbal Response: oriented(5). Motor Response: obeys 7 commands(6). Total: 15. MDM: 18:26 Differential diagnosis: cluster headache, hypoglycemia, hyponatremia, migraine, tension mh7 headache, seizures, post CVA sequela. Data reviewed: vital signs, nurses notes, old medical records. Data interpreted: Pulse oximetry: on room air is 99 %. Interpretation: normal. Counseling: I had a detailed discussion with the patient and/or guardian regarding: the historical points, exam findings, and any diagnostic results supporting the discharge/admit diagnosis. Response to treatment: the patient's symptoms have resolved after treatment, the patient's blood pressure is in an acceptable range, mental status has returned to baseline, the patient no longer shows bradycardia, the patient is not short of breath, the patient is not tachycardic, the patient's pain is gone, the patient's temperature has normalized. Refusal of service: The patient/guardian displays adequate decision making capability and despite a detailed discussion of alternatives, benefits, risks, and consequences refuses: CT Scan, all lab tests, all X-rays. ED course: Patient states that she feels fine and declined any testing or evaluation. She will follow up with her PCP and has an appointment to see her neurologist. Advised patient to return to ER if worsening of symptoms or any other concerns.. 18:43 Patient medically screened. [facility] 02/09 18:26 Order name: EKG; Complete Time: 18:27 [facility] 02/09 18:26 Order name: Cardiac monitoring; Complete Time: 18:26 [facility] 02/09 18:26 Order name: EKG - Nurse/Tech; Complete Time: 18:26 [facility] 02/09 18:26 Order name: Labs collected and sent; Complete Time: 18:26 [facility] 02/09 18:26 Order name: O2 Per Protocol; Complete Time: 18:26 [facility] 02/09 18:26 Order name: O2 Sat Monitoring; Complete Time: 18: [facility] Administered Medications: No medications were administered Disposition Summary: 02/09/22 18:43 Discharge Ordered Location: Home [facility] Problem: chronic [facility] Symptoms: have improved [facility] Condition: Stable [facility] Diagnosis - Tremor, unspecified - chronic 7 - Headache - chronic 7 - Other visual disturbances - chronic [facility] Followup: [facility] - With: Isaac Grier DO - When: 1 - 2 days - Reason: Worsening of condition, Recheck today's complaints, Continuance of care, Re-evaluation by your physician Followup: [facility] - With: Jozef Mcdaniels MD - When: 1 - 2 days - Reason: Worsening of condition, Recheck today's complaints Discharge Instructions: - Discharge Summary Sheet 7 - Blurred Vision, Adult 7 - General Headache Without Cause 7 - Tremor [facility] Forms: - Medication Reconciliation Form [facility] - Thank You Letter [facility] - Antibiotic Education 7 - Prescription Opioid Use [facility] Signatures: Dispatcher [employer] Kamala Wiley RN RN ap3 Jomar Ramsey MD MD 7 Corrections: (The following items were deleted from the chart) 18:33 18:26 IV Saline Lock ordered. [facility]
--- NOTE | 2022-02-09 18:43 | ER ---
Nurse's Notes [facility] Name: Clare Lenz Age: 66 yrs Sex: Female : 1955 Arrival Date: 02/09/2022 Time: 17:37 Bed 11 Private MD: Isaac Grier H Diagnosis: Tremor, unspecified-chronic;Headache-chronic;Other visual disturbances-chronic Presentation: 02/09 17:46 Chief complaint: Patient states: she had a stroke in November of this year, and ever since ap3 the stroke she reports tremors in her left arm and left leg. patient states that over the last couple of months those tremors have gotten worse. Patient states that she has been evaluated by her PCP for these symptoms, but hasn't been able to get in to see her neurologist as of yet. Coronavirus screen: At this time, the client does not indicate any symptoms associated with coronavirus-19. Ebola Screen: No symptoms or risks identified at this time. Initial Sepsis Screen: Does the patient meet any 2 criteria? No. Patient's initial sepsis screen is negative. Does the patient have a suspected source of infection? No. Patient's initial sepsis screen is negative. Risk Assessment: Do you want to hurt yourself or someone else? Patient reports no desire to harm self or others. Onset of symptoms was November 2021. 17:46 Method Of Arrival: Ambulatory ap3 17:46 Acuity: RAHUL 3 ap3 Triage Assessment: 17:50 General: Appears in no apparent distress. Behavior is calm, cooperative, appropriate ap3 for age. Pain: Denies pain. EENT: Neuro: Level of Consciousness is awake, alert, obeys commands, Oriented to person, place, time, situation, Moves all extremities. Gait is steady, Speech is normal, Facial symmetry appears normal. Cardiovascular: Patient's skin is warm and dry. Respiratory: Airway is patent Respiratory effort is even, unlabored, Respiratory pattern is regular, symmetrical. Musculoskeletal: Reports intermittent tremors in left arm and leg. Historical: - Allergies: 17:49 Cipro; ap3 - PMHx: 17:49 Herniated disc; TIA; ap3 - PSHx: 17:49 stent placed in right leg; ap3 - Immunization history:: Client reports having NOT received the Covid vaccine. - Social history:: Smoking status: Patient reports the use of cigarette tobacco products, smokes one-half pack cigarettes per day. Screenin:51 Abuse screen: Denies threats or abuse. Nutritional screening: No deficits noted. ap3 Tuberculosis screening: No symptoms or risk factors identified. 17:59 Fall Risk None identified. bm7 Assessment: 17:59 Reassessment: Patient and/or family updated on plan of care and expected duration. Pain bm7 level reassessed. Patient is alert, oriented x 3, equal unlabored respirations, skin warm/dry/pink. General: Appears in no apparent distress. comfortable, well groomed, well developed, Behavior is calm, cooperative, appropriate for age. Pain: Denies pain. Neuro: Level of Consciousness is awake, alert, obeys commands, Oriented to person, place, time, situation, Information Assurance are equal bilaterally Moves all extremities. Gait is steady, Speech is normal, Facial symmetry appears normal, Pupils are PERRLA. Cardiovascular: No deficits noted. Denies chest pain, shortness of breath. Respiratory: No deficits noted. GI: No deficits noted. No signs and/or symptoms were reported involving the gastrointestinal system. : No deficits noted. No signs and/or symptoms were reported regarding the genitourinary system. EENT: No deficits noted. No signs and/or symptoms were reported regarding the EENT system. Derm: No deficits noted. No signs and/or symptoms reported regarding the dermatologic system. Musculoskeletal: No deficits noted. No signs and/or symptoms reported regarding the musculoskeletal system. 18:09 Reassessment: MD AT BEDSIDE TO ASSESS. bm7 18:31 Reassessment: patient states she has changed her mind and would like to go home before bm7 treatment starts so she can just go see her neurologist on Friday. Vital Signs: 17:46 BP 154 / 58; Pulse 86; Resp 18; Temp 98.7; Pulse Ox 99% ; Weight 54.88 kg; Height 5 ft. ap3 2 in. (157.48 cm); 17:46 Body Mass Index 22.13 (54.88 kg, 157.48 cm) ap3 Vicky Coma Score: 18:26 Eye Response: spontaneous(4). Verbal Response: oriented(5). Motor Response: obeys 7 commands(6). Total: 15. ED Course: 17:37 Patient arrived in ED. as 17:38 Isaac Grier DO is Private Physician. as 17:48 Triage completed. ap3 17:51 Arm band placed on right wrist. ap3 17:58 Josefina Queen, RN is Primary Nurse. bm7 17:59 No apparent distress. Resting quietly. Awaiting ED provider evaluation. bm7 17:59 Patient has correct armband on for positive identification. Bed in low position. Call bm7 light in reach. Client placed on continuous cardiac and pulse oximetry monitoring. NIBP monitoring applied. 17:59 No provider procedures requiring assistance completed. bm7 18:03 Jomar Ramsey MD is Attending Physician. mh7 18:39 Patient did not have IV access during this emergency room visit. bm7 18:41 Isaac Grier DO is Referral Physician. mh7 18:41 Jozef Mcdaniels MD is Referral Physician. mh7 Administered Medications: No medications were administered Medication: 17:59 VIS not applicable for this client. bm7 Outcome: 18:39 Discharged to home ambulatory, with family. bm7 18:39 Condition: good 18:39 Discharge instructions given to patient, family, Instructed on discharge instructions, follow up and referral plans. Demonstrated understanding of instructions, follow-up care. 18:43 Discharge ordered by . mh7 18:46 Patient left the ED. bm7 Signatures: Lucila Escobar Amanda, RN RN ap3 Jomar Ramsey MD MD 7 Josefina Queen, LEIF RN bm7
[2022-02-09 19:41] VITALS: BP 154/58; TEMP 98.7; O2SAT 99
== END 2022-02-09 18:46 | disposition home or self-care (01) ==
LOC: ER 17:35
DX: R25.1 Tremor, unspecified (principal); R51.9 Headache, unspecified; H53.8 Other visual disturbances; F17.210 Nicotine dependence, cigarettes, uncomplicated; Z86.73 Personal history of transient ischemic attack (TIA), and cerebral infarction without residual deficits; Z88.1 Allergy status to other antibiotic agents
CPT/HCPCS: 99281

== ENCOUNTER 2022-04-04 11:04 | Emergency (ER) | payer OTHER ==
--- OUTSIDE RECORDS SUMMARY | 2022-04-04 11:07 | XMS REPORT | Continuity of Care Document ---
:1955 Author Organization [facility] t Address [address] [place] [address] Care Team Providers Name Role Phone Lilliam Grier Primary Care Physician GENE MURILLO-ELKIN ALONSOI Attending Clinician Unavailable FABIÁN STEINBERG Attending Clinician Unavailable Nina Pelaez Attending Clinician NATE FALCON Attending Clinician Unavailable Nate Falcon Attending Clinician Reshma Singleton Attending Clinician RESHMA SINGLETON Attending Clinician Unavailable Guanakito Mancia Attending Clinician Stoney Johnson Attending Clinician Unavailable Nakul Attending Clinician Unavailable Helga Galvin Attending Clinician HELGA GALVIN Attending Clinician Unavailable FANY KHAN Attending Clinician Unavailable MagalisMendy jaime Attending Clinician MENDY BLANCAS Attending Clinician Unavailable GC_BRONWYNC_Cherches_I Attending Clinician Unavailable Raju_P Attending Clinician Unavailable LopezLauren Admitting Clinician Karla_Isabel Admitting Clinician Unavailable Helga Galvin Admitting Clinician HELGA GALVIN Admitting Clinician Unavailable GC_TNC_Cherches_I Admitting Clinician Unavailable Elle_Jose M Admitting Clinician Unavailable Payers Payer Name Policy Type Policy Number Effective Date Expiration Date S micaela [facility] [employer] [id number] 2021 00:00:00 [facility] MEDICARE [id number] COMPLETE (MEDICARE REPLACEMENT HMO) Problems This patient has no known problems. Allergies, Adverse Reactions, Alerts Allergy Allergy Status Severity Reaction(s) Onset Inactive Treating Comm ents Source Name Type Date Date Clinician ciproflo DA Active U Rash [facility] xacin 12-27 00:00: 00 Social History Social Habit Start Date Stop Date Quantity Comments Source Sex Assigned At [birth year] [facility] 00:00:00 00:00:00 Smoking Status Start Date Stop Date Source Tobacco smoking consumption unknown [facility] Medications This patient has no known medications. Procedures This patient has no known procedures. Encounters Start End Encounter Admission Attending Care Care Encounter Source Date/Time Date/Time Type Type Clinicians Facility Department ID 2022-03-12 Outpatient [facility] [id number] [place] 08:45:[id number] [place] [address] 2022-01-23 Outpatient MURILLO, [facility] [id number] [place] 12:31:25 GENE-ELKIN [id number] [facility] 2021-12-14 Outpatient MURILLO, [facility] [id number] [place] 10:10:38 GENE-ELKIN [id number] [facility] 2022-04-10 2022-04-10 Outpatient IDRIS, [facility] [id number] [place] 09:30:00 09:30:00 FABIÁN [facility] 2022-03-26 2022-03-27 Outpatient [facility] [id number] 07:33:00 07:33:00 05 2022-03-25 2022-03-26 Outpatient MG [facility] [id number] 15:46:04 23:59:59 00 2022-03-25 2022-03-25 Outpatient Latanya [facility] [id number] 14:30:00 23:59:59 Nadim Gus 00 2022-03-15 2022-03-17 Outpatient E ADIEL, [facility] MED [id number] [facility] 19:31:00 14:35:00 NATE 2022-03-15 2022-03-17 Outpatient Zejeremiah, [facility] [id number] 13:43:36 14:35:00 Nate 03 Josselin 2022-03-15 2022-03-17 Outpatient Zejeremiah, [facility] [id number] 13:43:36 14:35:00 Nate 03 Josselin 2022-03-15 2022-03-15 Outpatient IDRIS [facility] [id number] [place] 09:45:00 09:45:00 [facility] 2022-02-07 2022-02-07 Telephone Murillo, [facility] [id number] [place] 00:00:00 00:00:00 [facility] [id number] [facility] [id number] Medical [id number] [place] 1 2 2022-01-31 2022-02-01 [facility] [id number] 16:49:00 11:39:00 Reshma 01 Jayesh 2022-01-31 2022-02-01 [facility] [id number] 16:49:00 11:39:00 Reshma 01 Jayesh 2022-01-31 2022-02-01 [facility] [id number] [facility] 16:49:00 11:39:00 RESHMA 2022-01-29 2022-01-29 Outpatient Gavino, [id number] . [id number] 16:38:00 23:59:00 [place] [id number] [place] [id number] 2021-12-28 2021-12-28 Outpatient Elective Elizabeth, [facility] [id number] [facility] 05:42:00 12:30:00 Stoney 45 2021-12-28 2021-12-28 Outpatient [facility] [id number] [facility] 05:42:00 05:42:00 45 2021-12-15 2021-12-15 Outpatient FOG_Taba_Ho AOSM AOSM [id number] Elli 01:26:00 01:26:00 Allison [id number] [facility] 2021-12-14 2021-12-14 Telephone Grant Murillo [id number] [place] 00:00:00 00:00:00 [facility] [id number] [facility] [id number] Medical [id number] [place] 1 2 2021-11-28 2021-11-30 Outpatient Kamar, [facility] [id number] 19:46:00 14:00:00 Helga Ryan 45 2021-11-28 2021-11-30 Outpatient Kamar, [facility] [id number] 19:46:00 14:00:00 Helga Ryan 45 2021-11-28 2021-11-30 Inpatient KAMAR, [facility] [id number] [facility] 19:46:00 14:00:00 HELGA 2021-11-29 2021-11-29 Outpatient KHAN, [facility] [id number] [place] 07:30:00 07:30:00 [facility] 2021-11-28 2021-11-28 Outpatient Magalis, [facility] MHPL [id number] 13:05:13 19:00:00 Mendy 00 [facility]Sh[facility] 2021-11-28 2021-11-28 Outpatient Magalis, [facility] [id number] 13:05:13 19:00:00 Mendy 00 Ur-Shakira 2021-11-28 2021-11-28 Emergency E MAGALIS, MHBL MHBL [id number] MHBL 13:05:00 19:00:00 MENDY 2021-11-28 2021-11-28 Outpatient GC_TNC_Cher PRIV PRIV [id number] [place] 05:59:00 05:59:00 ches_I [id number] Medica l 2019-10-04 2019-10-04 Outpatient Elle_Jose M MMG MMG [id number] [place] 03:06:00 03:06:00 [facility] 2013-09-28 2013-09-28 Outpatient [id number] [place] 12:01:21 23:59:59 [id number] [place] [id number] [facility]urg[facility] 00 [facility]osp[facility] l Results Test Description Test Time Test Comments Results Result Comments Source Complete Blood Count w/o Diff 2021-12-28 06:25:00 Test Item Value Reference Range Interpretation Comme nts White Blood Count (test code = WBCT) 11.6 x10 3/uL 4.4-10.5 H Red Blood Count (test code = RBC) 3.65 x10 6/uL 3.75-5.20 L Hemoglobin (test code = HGBT) 11.4 g/dL 12.2-14.8 L Hematocrit (test code = HCTT) 34.5 % 36.5-44.4 L Mean Corpuscular Volume (test code = MCV) 94.50 fL 80.00-100.00 N Mean Corpuscular Hemoglobin (test code = MCH) 31.2 pg 27.0-32. 5 N Mean Corpuscular HGB Conc (test code = MCHC) 33.00 g/dL 32.00-37. 50 N RDW Coefficient of Variation (test code = RDWCV) 13.2 % 11.5- 14.5 N Platelet Count (test code = PLTT) 254.0 x10 3/uL 140.0-440.0 N Mean Platelet Volume (test code = MPV) 9.8 fL nRBC Abs (test code = NRBCA) 0 nRBC Pct (test code = NRBCP) 0 % Comprehensive Metabolic [id number] 06:25:00 Test Item Value Reference Range Interpretation Comments SODIUM (test code = NA) 144.0 mmol/L 136.0-145.0 N Potassium,K (test code = K) 4.7 mmol/L 3.0-5.1 N Chloride (test code = CL) 111 mmol/L 98-107 H Carbon Dioxide (test code = CO2) 28 mmol/L 20-31 N Anion Gap (test code = GAP) 5 mmol/L 5-15 N Blood Urea Nitrogen (test code = 20 mg/dL 9-23 N BUN) Creatinine (test code = CREATT) 0.69 mg/dL 0.55-1.02 N Creatinine Clr Calc Pharmacy 52.90 mL/min (test code = CRCLPHA) Estimated GFR ( Meagan > 60 mL/min/1.73m2 (test code = EGFRAA) Estimated GFR (Non Afr Meagan > 60 mL/min/1.73m2 (test code = EGFRNAA) BUN/Creatinine Ratio (test code 29 ratio 10-20 H = BCRATIO) Glucose (test code = GLU) 117 mg/dL 74-106 H Osmolality,Calculated (test code 301.1 = OSMOC) Calcium (test code = CA) 9.1 mg/dL 8.3-10.6 N Bilirubin,Total (test code = 0.2 mg/dL 0.2-1.1 N BILIT) Aspartate Amino Transferase 22 U/L 0-34 N (test code = AST) Alanine Aminotransferase (test 10 U/L 10-49 N code = ALT) Total Protein (test code = TP) 6.3 g/dL 5.7-8.2 N Albumin Level (test code = ALB) 4.3 g/dL 3.2-4.8 N Globulin (test code = GLOB) 2.0 mg/dL 2.3-3.5 L Albumin/Globulin Ratio (test 2.2 ratio 0.8-2.0 H code = AGRATIO) Alkaline Phosphatase (test code 116 U/L 46-116 N = ALP) Prothrombin Time [id number] 06:25:00 Test Item Value Reference Range Interpretation Comments Prothrombin Time 10.4 Seconds 9.3-12.1 N *Note New R eference (test code = PT) Range INR (test code = 1.0 ratio 0.9-1.2 N Reference I nterval is INR) for non-anticoagula aicha patients.Sugges aicha INR Therapeutic Range for Vitamin K antogonistthera py:LEV ELS OFTHERAPY INDICATIONS TAR GET INR RANGEStanda rd Dose Venous Thrombosis, 2.0 - 3.0 Atrial Fibrilla tion, Pulmonary Embolism.High D ose Valvular Heart Disease, 2.5 - 3.5 Mechanical Hear t, Intracardiac Thrombosis.*Not e New Reference Range Partial Thromboplastin [id number] 06:25:00 Test Item Value Reference Range Interpretation Comments Partial Thromboplastin 26.2 Seconds 23.9-32.8 N *Note New Time (test code = PTT) Refer ence Range
[2022-04-04] MEDS ORDERED: LIDOCAINE 1% W/EPI 1:100,000 10 ML VIAL ONE (12:01)
[2022-04-04] MEDS ORDERED: MORPHINE 4 MG/ML SYR ONE (12:07)
--- NOTE | 2022-04-04 12:17 | ER ---
Nurse's Notes [facility] Name: Clare Lenz Age: 66 yrs Sex: Female : 1955 Arrival Date: 04/04/2022 Time: 11:07 Bed 20 Private MD: Isaac Grier H Diagnosis: Cutaneous abscess of buttock Presentation: 04/04 11:15 Chief complaint: Patient states: rectal abscess x2 days, that's getting larger and very jh5 painful. Coronavirus screen: Vaccine status: Patient reports being unvaccinated. Client denies travel out of the [place] in the last 14 days. Ebola Screen: Patient negative for fever greater than or equal to 101.5 degrees Fahrenheit, and additional compatible Ebola Virus Disease symptoms Patient denies exposure to infectious person. Patient denies travel to an Ebola-affected area in the 21 days before illness onset. Initial Sepsis Screen: Does the patient meet any 2 criteria? No. Patient's initial sepsis screen is negative. Does the patient have a suspected source of infection? No. Patient's initial sepsis screen is negative. Initial Sepsis Screen: Does the patient meet any 2 criteria?. Risk Assessment: Do you want to hurt yourself or someone else? Patient reports no desire to harm self or others. Onset of symptoms was April 03, 2022. 11:15 Method Of Arrival: Ambulatory [facility] 11:15 Acuity: RAHUL 3 jh5 Triage Assessment: 11:17 General: Appears in no apparent distress. uncomfortable, slender, Behavior is calm, jh5 cooperative, appropriate for age. Pain: Complains of pain in buttocks. Historical: - Allergies: 11:17 Cipro; jh5 - PMHx: 11:17 Herniated disc; TIA; 5 - PSHx: 11:17 stent placed in right leg; jh5 - Immunization history:: Adult Immunizations up to date. - Social history:: Smoking status: Patient reports the use of cigarette tobacco products, smokes one-half pack cigarettes per day. Screenin:24 Abuse screen: Denies threats or abuse. Denies injuries from another. Nutritional mb8 screening: No deficits noted. Tuberculosis screening: No symptoms or risk factors identified. Fall Risk None identified. Assessment: 11:22 General: Appears uncomfortable, Behavior is calm, cooperative, appropriate for age. mb8 Pain: Complains of pain in left gluteus yamileth Pain does not radiate. Quality of pain is described as sharp, Pain began 2-3 days ago. Is continuous, Alleviated by nothing. Aggravated by bowel movement. Derm: Abscess located on left gluteus yamileth. Vital Signs: 11:15 Weight 53.98 kg; Height 5 ft. 2 in. (157.48 cm); [facility] 11:21 BP 167 / 67; Pulse 72; Resp 16; Temp 98.1(O); Pulse Ox 100% ; Pain 10/10; mb8 12:36 BP 168 / 71; Pulse 74; Resp 18; Temp 97.9; Pulse Ox 99% ; mb8 11:15 Body Mass Index 21.77 (53.98 kg, 157.48 cm) [facility] ED Course: 11:07 Patient arrived in ED. [facility] 11:07 Isaac Grier DO is Private Physician. [facility] 11:09 [facility] 11:09 Wolfgang Maldonado MD is Attending Physician. [facility] 11:11 Jayesh Castillo, LEIF is Primary Nurse. [facility] 11:17 Triage completed. [facility] 11:17 Arm band placed on right wrist. [facility] 11:24 Patient has correct armband on for positive identification. Placed in gown. Bed in low mb8 position. Call light in reach. Side rails up X2. Client placed on continuous cardiac and pulse oximetry monitoring. NIBP monitoring applied. 12:17 Hiro Ly MD is Referral Physician. [facility] 12:20 Assist provider with I \T\ D: of an abscess on. Patient did not have IV access during 8 this emergency room visit. Administered Medications: 12:09 Not Given (Patient Refused): morphine 4 mg IM once 8 12:10 Drug: Lidocaine-Epinephrine -1%: (1:100,000) 20 ml {Note: given by GREG Cardoza.} Volume: mb8 20 ml; Route: Infiltration; Medication: 11:24 VIS not applicable for this client. 8 Outcome: 12:17 Discharge ordered by . [facility] 12:36 Discharged to home ambulatory. [facility] 12:36 Condition: stable 12:36 Discharge instructions given to patient, Instructed on discharge instructions, follow up and referral plans. medication usage, Demonstrated understanding of instructions, follow-up care, medications, Prescriptions given X 1. 12:37 Patient left the ED. mb8 Signatures: Toby Cardoza PA PA jmm Garcia, Rubi rg4 Bev Rodríguez, RN RN jh5 Jayesh Castillo RN RN mb8
--- NOTE | 2022-04-04 12:18 | EDPHYS ---
Physician Documentation [facility] Name: Clare Lenz Age: 66 yrs Sex: Female : 1955 Arrival Date: 04/04/2022 Time: 11:07 Bed 20 Private MD: Isaac Grier H ED Physician Wolfgang Maldonado HPI: 04/04 11:25 This 66 yrs old Female presents to ER via Ambulatory with complaints of Rectal Abscess. jmm 11:25 The patient presents with an abscess of the buttocks. Onset: The symptoms/episode jmm began/occurred gradually, 2 day(s) ago. Possible cause(s): unknown. Associated signs and symptoms: Pertinent positives: swelling, Pertinent negatives: fever. Modifying factors: the symptoms are alleviated by nothing, the symptoms are aggravated by nothing. This is a 66 year old female with a history of cva that presents to the ED with complaints of left gluteal swelling beginning approx 2 days ago. Denies fever. Denies drainage. . Historical: - Allergies: 11:17 Cipro; 5 - PMHx: 11:17 Herniated disc; TIA; [facility] - PSHx: 11:17 stent placed in right leg; [facility] - Immunization history:: Adult Immunizations up to date. - Social history:: Smoking status: Patient reports the use of cigarette tobacco products, smokes one-half pack cigarettes per day. ROS: 12:14 Constitutional: Negative for fever, chills, and weight loss, Cardiovascular: Negative jmm for chest pain, palpitations, and edema, Respiratory: Negative for shortness of breath, cough, wheezing, and pleuritic chest pain. 12:14 Skin: Positive for erythema, swelling. 12:14 All other systems are negative. Exam: 12:14 Constitutional: This is a well developed, well nourished patient who is awake, alert, jmm and in no acute distress. Head/Face: atraumatic. Eyes: EOMI, no conjunctival erythema appreciated ENT: Moist Mucus Membranes Neck: Trachea midline, Supple Chest/axilla: Normal chest wall appearance and motion. Cardiovascular: Regular rate and rhythm. No edema appreciated Respiratory: Normal respirations, no respiratory distress appreciated Abdomen/GI: Non distended Back: Normal ROM 12:14 Skin: abscess, that is moderate sized, of the left gluteus yamileth, with fluctuance, with induration. 12:14 Neuro: Orientation: is normal, Mentation: is normal, Memory: is normal. 12:14 Psych: Behavior/mood is pleasant, cooperative. Vital Signs: 11:15 Weight 53.98 kg; Height 5 ft. 2 in. (157.48 cm); [facility] 11:21 BP 167 / 67; Pulse 72; Resp 16; Temp 98.1(O); Pulse Ox 100% ; Pain 10/10; mb8 12:36 BP 168 / 71; Pulse 74; Resp 18; Temp 97.9; Pulse Ox 99% ; 8 11:15 Body Mass Index 21.77 (53.98 kg, 157.48 cm) [facility] Procedures: 12:15 I \T\ D: Incision and drainage was performed for an abscess of the left gluteus yamileth [facility] Prepped with Betadine, Anesthetized with 8 ml's 1% Lidocaine w/ Epi. Incised with #11 blade. Drained large amount purulent fluid. Packed with iodoform gauze, Dressing: sterile 4x4 gauze, the patient tolerated the procedure well. MDM: 11:21 Patient medically screened. [facility] 12:15 Data reviewed: vital signs, nurses notes. Counseling: I had a detailed discussion with [facility] the patient and/or guardian regarding: the historical points, exam findings, and any diagnostic results supporting the discharge/admit diagnosis, the need for outpatient follow up, to return to the emergency department if symptoms worsen or persist or if there are any questions or concerns that arise at home. ED course: patient is alert and non toxic in appearance in the ED. large amount of purulent drainage was released. patient put on oral abx and advised to follow up with gen surgery for reevaluation. patient otherwise given strict return precautions. patient understood and agrees with the plan of care. . 04/04 11:22 Order name: Incision \T\ Drainage Setup; Complete Time: 12:09 [facility] 04/04 12:14 Order name: Wound Care; Complete Time: :29 [facility] Administered Medications: 12:09 Not Given (Patient Refused): morphine 4 mg IM once mb8 12:10 Drug: Lidocaine-Epinephrine -1%: (1:100,000) 20 ml {Note: given by GREG Cardoza.} Volume: mb8 20 ml; Route: Infiltration; Disposition: 14:20 PA/[employer]'s history reviewed, patient interviewed, and examined. I agree with assessment jr11 and care plan and confirm the diagnosis (es) above. Attestation: The patient's history, exam findings, diagnostics, and a summary of any interventions or procedures was reviewed in detail with Toby GARZA. Disposition Summary: 04/04/22 12:17 Discharge Ordered Location: Home jm Condition: Stable jmm Diagnosis - Cutaneous abscess of buttock jmm Followup: jmm - With: Hiro Ly MD - When: 2 - 3 days - Reason: Recheck today's complaints, Continuance of care, Re-evaluation by your physician Discharge Instructions: - Discharge Summary Sheet jm - How to Take a Sitz Bath jmm - Incision and Drainage, Care After jmm Forms: - Medication Reconciliation Form jmm - Thank You Letter jmm - Antibiotic Education jmm - Prescription Opioid Use jmm Prescriptions: - Doxycycline Hyclate 100 mg Oral Tablet - take 1 tablet by ORAL route every 12 hours; 20 tablet; Refills: 0, Product jmm Selection Permitted Signatures: Toby Cardoza PA PA jmm Rees, Jessica RN RN jh5 Wolfgang Maldonado MD MD jr11 Jayesh Castillo RN RN mb8 Corrections: (The following items were deleted from the chart) 12:14 11:25 This is a 66 year old female with a history of cva that presents to the ED with jmm complaints of right gluteal swelling beginning approx 2 days ago. Denies fever. Denies drainage. . jmm
[2022-04-05 17:24] VITALS: BP 168/71; TEMP 97.9; O2SAT 99
== END 2022-04-04 12:37 | disposition home or self-care (01) ==
LOC: ER 11:04
PROC: 0H98XZZ Drainage of Buttock Skin, External Approach (ICD-10-PCS; principal; 2022-04-04)
DX: L02.31 Cutaneous abscess of buttock (principal); F17.210 Nicotine dependence, cigarettes, uncomplicated; Z88.1 Allergy status to other antibiotic agents
CPT/HCPCS: 99283